=== PATIENT | female | born 2000 | race Caucasian/White ===

== ENCOUNTER 2020-10-02 19:12 | Emergency (ER) | payer BC ==
[~2020-10-02] VITALS: Ht 160 cm; Wt 49.9 kg
[2020-10-02 19:28] VITALS: BP 90/54
--- NOTE | 2020-10-02 19:29 | NUR ---
Nurse Note: Pt arrived with bilateral lac on wrists around 190. Pt stated she was washing dishes, glass broke and cut her wrists. Lac approxmately small in length; no blood noted. Does not remember last tetanus shot
[2020-10-02] MEDS ORDERED: TYLENOL EXTRA500 MG ORAL (19:39)
[2020-10-02] MEDS ORDERED: CEPHALEXIN500 MG ORAL (19:39)
--- NOTE | 2020-10-02 19:39 | Emergency Room Report ---
History of Present Illness General Chief Complaint: Laceration Source: Patient Present Illness HPI 20-year-old female presents with bilateral wrist lacerations after she was washing dishes and try to catch a broken plate while washing dishes. Denies SI, HI, auditory or visual hallucinations. She is right hand dominant. Tdap is unknown. Last menstrual period was 3 weeks ago. The patient's symptoms were gradual onset, severity was moderate, duration since 1 day. Quality: aching Past medical history: Denies Past surgical history: Denies Smoking: Denies Alcohol use: Denies Drug use: Denies Review of systems: CONST: No fevers or chills, No night sweats PULMONARY: No productive cough, No shortness of breath CARDIAC: No chest pain, No palpitations GI: No vomiting, No diarrhea , No melena_or_BRBPR : No dysuria, No hematuria, No discharge NEURO: No new_focal_weakness_or_numbness, No confusion, No vision changes 14 point Review of Systems is otherwise negative except per HPI Physical Exam: GENERAL: Awake_alert_ nontoxic, no acute distress Spo2 99% on RA -normal EYES: Extraocular muscles are intact. Conjunctivae clear. Lids without swelling ENT: External nose and ear normal_in_appearance. Oropharynx clear. Head_atraumatic, Moist_oral_mucosa NECK: No JVD. No meningismus. No thyromegaly. Supple. Trachea midline RESP: Normal respiratory effort. Symmetric rise. No stridor. Clear_to_auscultation_No_rales_No_wheezes CARDIAC: Regular rate and regular rhytm. No_significant pedal edema. ABDOMEN: Soft. Nondistended. Nontender_No_rebound_or_guarding. MSK: Normal muscle tone, without rigidity. Extremities without asymmetric deformity or swelling. SKIN: Warm and dry. No visible cyanosis or pallor Bilateral medial wrist laceration 3cm simple linear, no arterial bleeding Radial pulse 2/4 bilateral Upper extremity exam: Bilateral Elbow: No swelling / effusion appreciated, no significant pain with passive range of motion Wrist: No swelling / effusion appreciated, no significant pain with passive range of motion Lateral epicondyle: no tenderness / swelling / ecchymoses Medial epicondyle: no tenderness / swelling / ecchymoses Radial pulse: 2+ Capillary refill: <3 seconds in all fingers All fingers: full range of motion without any tenderness / swelling / deformity / evidence of infection Scaphoid: no tenderness / swelling / ecchymoses, no pain with axial loading of the thumb Radian / Median / Ulnar nerves: all intact (finger opposition, finger adduction / abduction, thumb dorsiflexion) Sensation intact to light touch: in all fingers Strength 5/5 with: wrist dorsi / volar flexion, hand rv repairer, elbow flexion / extension NEUROLOGIC: Alert, oriented x3. Motor_and_sensation_grossly_intact. No truncal ataxia. Gait_normal Psych: Normal mood and affect, normal judgment and insight - COORDINATION OF CARE Case was discussed with: Patient Any labs and imaging that were ordered were interpreted as part of the medical decision making: Medical Decision Making/Plan: DDx: laceration vs abrasion vs contusion. RHD 20F c/o bilateral medial wrist laceration after catching broken dish. No SI, HI. Minimal blood loss on scene. Pt initially borderline BP, but no signs of active hemorrahge. 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 Bilateral wrist xrays were negative for FB. NVI Bilateral UE with no exposed tendon or bone. Tdap updated. Lac repair done x 2. Pt tolerated without complications. Will dc with keflex. Pertinent results reviewed with the patient. I educated the patient on the current treatment plan including the risks, benefits, and alternatives. I also discussed the extent and limitations of the current evaluation. The patient expressed understanding and agreement with plan. I recommended PMD follow-up within 1-2 days for wound check. Also advised that the patient return to the Emergency Department as soon as possible if they experience any new, persistent, or worsening symptoms. Patient will be discharged with instructions to follow-up for suture removal in 7 to 10 days. Allergies: Coded Allergies: No Known Allergies (Unverified , 10/02/20) COVID-19 Screening Contact w/high risk pt: No Experienced COVID-19 symptoms?: No COVID-19 Testing performed [employer]SE[employer] SALESPERSON: No Patient History Last Menstrual Period: 09/2020 Nursing Documentation-[facility] Past Medical History: No Stated History Physical Exam Vital Signs Date Time Temp Pulse Resp B/P (MAP) Pulse Ox O2 Delivery O2 Flow Rate FiO2 10/02/20 19:16 98.2 93 18 90/54 (66) 99 Room Air Sp02 EP Interpretation: reviewed, normal Procedures Laceration/Wound Repair Progress Procedure note #1 Laceration Repair by me: Anesthesia: 1% lidocaine locally Location: Right medial wrist Tendon/Joint/Nerves: No injury Foreign body: None detected after copious irrigation and exploration Technique: Simple Interrupted Sutures Complexity: No subcutaneous sutures/mucosal repair/edge excision Post Closure Length: 3 cm Wound is hemostastic No evidence of compartment syndrome, neurologic injury, vascular injury, open joint, tendon laceration, or foreign body. Procedure note #2 Laceration Repair by me: Anesthesia: 1% lidocaine locally Location: Right medial wrist Tendon/Joint/Nerves: No injury Foreign body: None detected after copious irrigation and exploration Technique: Simple Interrupted Sutures Complexity: No subcutaneous sutures/mucosal repair/edge excision Post Closure Length: 3 cm Wound is hemostastic No evidence of compartment syndrome, neurologic injury, vascular injury, open joint, tendon laceration, or foreign body. Medical Decision Making Diagnostic Impression: Primary Impression: Wrist laceration Chest X-Ray Diagnostic Results Chest X-Ray Diagnostic Results : PA Scribe Text XR Left Wrist, 2 Views FINDINGS: Bones/joints: Unremarkable. No acute fracture. No dislocation. Soft tissues: Unremarkable. No radiopaque foreign body. IMPRESSION: No acute osseous abnormality. XR Right Wrist, 2 Views FINDINGS: Bones/joints: Unremarkable. No acute fracture. No dislocation. Soft tissues: Unremarkable. No radiopaque foreign body. IMPRESSION: No acute osseous abnormality. Reevaluation Time: 19:38 Last Vital Signs Date Time Temp Pulse Resp B/P (MAP) Pulse Ox O2 Delivery O2 Flow Rate FiO2 10/02/20 19:28 98.2 93 18 90/54 99 Room Air Disposition: HOME, SELF-CARE Admit Decision Time: 19:38 Condition: Stable Scripts Acetaminophen* (TYLENOL EXTRA STRENGTH*) 500 Mg Tablet 500 MG ORAL Q8H PRN for Prn Headache/Temp > 101, #30 TAB 0 Refills Prov: Deja Jackman D.O. 10/02/20 Cephalexin* (KEFLEX*) 500 Mg Capsule 500 MG ORAL EVERY 12 HOURS, #14 CAP 0 Refills Prov: Deja Jackman D.O. 10/02/20 Patient Instructions: Laceration Care, Adult Additional Instructions: Instructions for patient/publicist: Follow up with your physician in 1-2 days for wound check. Your sutures will need to be removed in 7 to 10 days. Follow-up with your doctor sooner if your condition requires a more timely clinical reevaluation. Return to the emergency department immediately if you feel that your condition is worsening or if you have any new or concerning symptoms. Review your discharge instructions and take any prescriptions given as instructed. [facility] PROVIDES FREE OR LOW-COST HEALTH SERVICES TO PEOPLE WHO CAN SHOW PROOF THAT THEY LIVE IN [facility]. TO FIND MORE CLINICS PARTNERED WITH [facility] TO PROVIDE SERVICE, PLEASE CALL . Deja Jackman D.O. Oct 02, 2020 19:39
[2020-10-02] MEDS ORDERED: Tetanus/Diptheria/Pertussis IM ONE (19:45)
[2020-10-02] MEDS ORDERED: Lidocaine 1% Plain 30 ml INJ ONE (19:45)
[2020-10-02] MEDS ORDERED: Bacitracin Oint UD TOPIC ONE (20:15)
--- NOTE | 2020-10-02 20:16 | Diagnostic Imaging Report ---
EXAM: XR Left Wrist, 2 Views CLINICAL HISTORY: PAIN TECHNIQUE: Frontal and lateral views of the left wrist. COMPARISON: No relevant prior studies available. FINDINGS: Bones/joints: Unremarkable. No acute fracture. No dislocation. Soft tissues: Unremarkable. No radiopaque foreign body. IMPRESSION: No acute osseous abnormality.
--- NOTE | 2020-10-02 20:19 | Diagnostic Imaging Report ---
EXAM: XR Right Wrist, 2 Views CLINICAL HISTORY: PAIN TECHNIQUE: Frontal and lateral views of the right wrist. COMPARISON: No relevant prior studies available. FINDINGS: Bones/joints: Unremarkable. No acute fracture. No dislocation. Soft tissues: Unremarkable. No radiopaque foreign body. IMPRESSION: No acute osseous abnormality.
== END 2020-10-02 20:20 | disposition home or self-care (01) ==
LOC: EDBD 19:12 → EMR 19:42
DX: S61.512A Laceration without foreign body of left wrist, initial encounter (principal); S61.511A Laceration without foreign body of right wrist, initial encounter; W26.8XXA Contact with other sharp object(s), not elsewhere classified, initial encounter; Y93.G1 Activity, food preparation and clean up; Y92.010 Kitchen of single-family (private) house as the place of occurrence of the external cause
CPT/HCPCS: 12002; 73100; 90471; 90715; 99283; J2001